=== PATIENT | male | born 1955 | race African-American/Black ===

== ENCOUNTER 2017-08-14 23:22 | Emergency (ER) | payer SELFPAY ==
[2017-08-14] MEDS: diphenhydrAMINE HCL 25 MG CAPSULE PO (23:52)
[2017-08-14] MEDS: ONDANSETRON ODT 4 MG TAB.RAPDIS. PO (23:52)
[2017-08-14] MEDS: HYDROcodone/APAP 5/325MG 1 TAB TABLET PO (23:54)
[2017-08-14] MEDS: KETOROLAC 60 MG/2 ML INJ. IM (23:55)
[2017-08-15] MEDS: oxyCODONE/APAP 5/325 1 TAB TABLET PO (01:16)
== END 2017-08-15 01:20 | disposition home or self-care (01) ==
LOC: ER 23:22
DX: R68.84 Jaw pain (principal); K08.89 Other specified disorders of teeth and supporting structures; I10 Essential (primary) hypertension
CPT/HCPCS: 96372; 99284-25; J1885; Q0162; Q0163

== ENCOUNTER 2017-09-16 12:21 | Emergency (ER) | payer SELFPAY | END 2017-09-16 12:36 | disposition left against medical advice (07) | LOC: ER 12:36 | DX: I10 Essential (primary) hypertension (principal); Z53.21 Procedure and treatment not carried out due to patient leaving prior to being seen by health care provider ==